=== PATIENT | female | born 1980 | race Caucasian/White ===

== ENCOUNTER 2016-08-24 14:29 | Emergency (ER) | payer MEDICAID ==
[~2016-08-24] VITALS: Ht 157.5 cm; Wt 93.0 kg
[~2016-08-24 14:29] MED LIST: ALBU5SOL6
[2016-08-24 14:38] VITALS: BP 143/92
[2016-08-24] MEDS ORDERED: PREDNISONE 20MG TABLET PO ONE (17:00)
[2016-08-24] MEDS ORDERED: IPRATROPIUM/ALBUTEROL 0.5-3(2.5)MG/3ML NEB HHN ONE ×3 (17:00→18:00)
== END 2016-08-24 18:14 | disposition home or self-care (01) ==
LOC: ER 16:04
DX: J45.901 Unspecified asthma with (acute) exacerbation (principal); R51 Headache; Z87.440 Personal history of urinary (tract) infections; Z90.49 Acquired absence of other specified parts of digestive tract
CPT/HCPCS: 94640; 99284; J7512; J7620

== ENCOUNTER 2019-01-18 02:10 | Emergency (ER) | payer MEDICAID ==
[~2019-01-18] VITALS: Ht 157.5 cm; Wt 117.0 kg
[2019-01-18] MEDS ORDERED: DIPHENHYDRAMINE 50MG CAPSULE PO ONE (03:15)
[2019-01-18] MEDS ORDERED: KETOROLAC 60MG/2ML VIAL IM ONE (03:15)
[2019-01-18] MEDS ORDERED: PREDNISONE 20MG TABLET PO ONE (03:15)
[2019-01-18] MEDS ORDERED: PROCHLORPERAZINE MALEATE 10MG TABLET PO ONE (03:15)
[2019-01-18 04:32] VITALS: BP 115/61
== END 2019-01-18 04:48 | disposition home or self-care (01) ==
LOC: ER 02:10
DX: G44.209 Tension-type headache, unspecified, not intractable (principal); J45.909 Unspecified asthma, uncomplicated; Z90.49 Acquired absence of other specified parts of digestive tract
CPT/HCPCS: 96372; 99284; J1885; J7512; Q0163; Q0164

== ENCOUNTER 2019-01-19 21:55 | Emergency (ER) | payer MEDICAID ==
[~2019-01-19] VITALS: Ht 157.5 cm; Wt 114.0 kg
[2019-01-19] MEDS ORDERED: SODIUM CHLORIDE 0.9% 1,000 ML IV ONE (23:07)
[2019-01-19] MEDS ORDERED: DIPHENHYDRAMINE 50MG/ML VIAL IV ONE (23:15)
[2019-01-19] MEDS ORDERED: METOCLOPRAMIDE HCL 10MG/2ML VIAL IV ONE (23:15)
[2019-01-19 23:56] LABS: BASOPHILS % 0.9 % (0.0-2.0); EOSINOPHILS % 1.2 % (0.0-5.0); HEMOGLOBIN. 13.6 g/dL (12.0-16.0); MEAN CORPUSCULAR VOLUME 88.2 fL (81.0-99.0); MEAN PLATELET VOLUME 9.5 fl (7.4-10.4); NEUTROPHILS % 64.9 % (40.0-76.0); PLATELET 260 x1000/uL (130-400); RED BLOOD CELL COUNT 4.54 mill/uL (4.2-5.4); RED CELL DISTRIBUTION WIDTH 12.9 % (11.6-14.6)
[2019-01-20 00:02] LABS: CHLORIDE 109 mEq/L (98-107)
[2019-01-20 00:34] LABS: HCG SCREEN NEGATIVE
[2019-01-20 00:56] LABS: CLARITY URINE TURBID (CLEAR); COLOR URINE YELLOW (YELLOW); KETONES URINE NEGATIVE (NEGATIVE); LEUKOCYTE ESTERASE URINE NEGATIVE (NEGATIVE); NITRITE URINE NEGATIVE (NEGATIVE); OCCULT BLOOD URINE NEGATIVE (NEGATIVE); PROTEIN URINE NEGATIVE (NEGATIVE)
[2019-01-20 01:13] VITALS: BP 117/76
== END 2019-01-20 01:56 | disposition home or self-care (01) ==
LOC: ER 21:55
DX: R51 Headache (principal); J45.909 Unspecified asthma, uncomplicated; H53.149 Visual discomfort, unspecified; H53.8 Other visual disturbances; R11.0 Nausea; R53.1 Weakness; Z90.49 Acquired absence of other specified parts of digestive tract
CPT/HCPCS: 36415; 70450; 80053; 81003; 84703; 85025; 85610; 96374; 96375; 99284; J1200; J2765; J7030; Z7610

== ENCOUNTER 2019-11-08 03:29 | Emergency (ER) | payer MEDICAID ==
[~2019-11-08] VITALS: Ht 157.5 cm; Wt 118.5 kg
[2019-11-08] MEDS ORDERED: ONDANSETRON HCL 4MG/2ML INJ IV STA (06:39)
[2019-11-08] MEDS ORDERED: MORPHINE SULFATE 4 MG/ML CPJ (NOT FOR IM USE) IV STA (06:39)
[2019-11-08] MEDS ORDERED: ASPIRIN 81MG TABLET PO ONE (06:45)
[2019-11-08] MEDS ORDERED: SODIUM CHLORIDE 0.9% 1,000 ML IV ONE (06:45)
[2019-11-08] MEDS ORDERED: NITROGLYCERIN OINT 1GM/INCH UDPKT TD ONE (06:45)
[2019-11-08 07:06] LABS: BASOPHILS % 1.1 % (0.0-2.0); EOSINOPHILS % 3.5 % (0.0-5.0); HEMATOCRIT. 43.8 % (36.0-48.0); HEMOGLOBIN. 14.8 g/dL (12.0-16.0); LYMPHOCYTES % 21.9 % (20.0-50.0); MEAN CORPUSCULAR HEMOGLOBIN 29.8 pg (28.0-32.0); MEAN CORPUSCULAR VOLUME 88.2 fL (81.0-99.0); MEAN PLATELET VOLUME 9.4 fl (7.4-10.4); MONOCYTES % 5.7 % (2.0-8.0); NEUTROPHILS % 67.8 % (40.0-76.0); PLATELET 279 x1000/uL (130-400); RED BLOOD CELL COUNT 4.97 mill/uL (4.2-5.4); RED CELL DISTRIBUTION WIDTH 12.7 % (11.6-14.6)
[2019-11-08 07:08] LABS: CHLORIDE 108 mEq/L (98-107)
[2019-11-08 07:14] LABS: ETHANOL BLOOD < 10 mg/dL
[2019-11-08 07:15] LABS: *AMPHETAMINES SCREEN URINE NEGATIVE (NEGATIVE); *COCAINE SCREEN URINE NEGATIVE (NEGATIVE); CANNABINOID URINE SCREEN NEGATIVE (NEGATIVE); METHADONE URINE SCREEN NEGATIVE (NEGATIVE); OPIATES URINE SCREEN NEGATIVE (NEGATIVE); PHENCYCLIDINE URINE SCREEN NEGATIVE (NEGATIVE)
[2019-11-08 07:16] LABS: *BARBITURATES SCREEN URINE NEGATIVE (NEGATIVE); *BENZODIAZEPINES SCREEN URINE NEGATIVE (NEGATIVE)
[2019-11-08 07:47] LABS: HCG SCREEN NEGATIVE
[2019-11-08 09:23] VITALS: BP 121/79
== END 2019-11-08 09:30 | disposition home or self-care (01) ==
LOC: ER 03:29
DX: J45.901 Unspecified asthma with (acute) exacerbation (principal); R42 Dizziness and giddiness; Z90.49 Acquired absence of other specified parts of digestive tract
CPT/HCPCS: 36415; 71045; 80053; 80305; 80320; 83690; 83880; 84484; 84703; 85025; 93005; 96374; 96375; 99285; J2270; J2405; J7030; Z7610; G0480

== ENCOUNTER 2020-09-05 20:30 | Emergency (ER) | payer MEDICAID ==
[~2020-09-05] VITALS: Ht 157.5 cm; Wt 114.0 kg
[2020-09-06] MEDS ORDERED: ONDANSETRON HCL 4MG/2ML INJ IM ONE
[2020-09-06] MEDS ORDERED: KETOROLAC 60MG/2ML VIAL IM ONE
[2020-09-06] MEDS ORDERED: ACETAMINOPHEN 325MG TABLET PO ONE
[2020-09-06] MEDS ORDERED: SODIUM CHLORIDE 0.9% 1,000 ML IV ONE (01:30)
[2020-09-06] MEDS ORDERED: MAGNESIUM 1 G PREMIX 100 ML IV ONE (01:30)
[2020-09-06] MEDS ORDERED: METOCLOPRAMIDE HCL 10MG/2ML VIAL IV ONE (01:30)
[2020-09-06 04:30] VITALS: BP 107/67
== END 2020-09-06 04:35 | disposition home or self-care (01) ==
LOC: ER 20:30
DX: G43.909 Migraine, unspecified, not intractable, without status migrainosus (principal); J45.909 Unspecified asthma, uncomplicated; Z90.49 Acquired absence of other specified parts of digestive tract
CPT/HCPCS: 96365; 96372; 96375; 99284; J1885; J2405; J2765; J3475; J7030

== ENCOUNTER 2024-12-07 17:45 | Emergency (ER) | payer MEDICAID ==
[~2024-12-07] VITALS: Ht 157.5 cm; Wt 104.7 kg
[2024-12-07 18:09] VITALS: TEMP 36.8; O2SAT 100
[2024-12-07] MEDS: ALBUTEROL (0.083%) 2.5MG/3ML NEB HHN SCH (18:30)
[2024-12-07] MEDS: METHYLPREDNISOLONE SOD SUCC 125MG/2ML (ACT-O-VIAL) IV ONE (19:47)
[2024-12-07 20:09] LABS: BASOPHILS % 0.8 % (0.0-2.0); EOSINOPHILS % 5.3 % (0.0-5.0); HEMATOCRIT. 39.0 % (36.0-48.0); HEMOGLOBIN. 13.3 g/dL (12.0-16.0); LYMPHOCYTES % 15.7 % (20.0-50.0); MEAN PLATELET VOLUME 9.3 fl (7.4-10.4); MONOCYTES % 6.3 % (2.0-8.0); NEUTROPHILS % 71.9 % (40.0-76.0); PLATELET 248 x1000/uL (130-400); RED BLOOD CELL COUNT 4.48 mill/uL (4.2-5.4); RED CELL DISTRIBUTION WIDTH 13.8 % (11.6-14.6)
[2024-12-07 20:28] LABS: CREATININE 0.8 mg/dL (0.6-1.0)
[2024-12-07 20:29] LABS: UREA NITROGEN BLOOD 12 mg/dL (9-23)
[2024-12-07 20:30] LABS: ASPARTATE AMINOTRANSFERASE 25 IU/L (<34)
[2024-12-07 20:31] LABS: BILIRUBIN DIRECT 0.1 mg/dL (<=3.0); BILIRUBIN TOTAL 0.3 mg/dL (0.1-1.0); PROTEIN TOTAL 6.6 g/dL (6.0-8.3)
[2024-12-07 20:34] LABS: TROPONIN I HIGH SENSITIVITY < 4 ng/L (3.0-34)
[2024-12-07] MEDS ORDERED: IPRA3AMP9 NEB (20:54)
[2024-12-07] MEDS ORDERED: ALBU18HF2 IH (20:54)
[2024-12-07] MEDS ORDERED: AZIT250T12 MT (20:54)
[2024-12-07] MEDS ORDERED: P50 MT (20:54)
[2024-12-07] MEDS: AZITHROMYCIN 500 MG TABLET PO ONE (21:13)
[2024-12-07 21:16] VITALS: BP 111/71; PULSE 88; RESP 15; O2SAT 96
== END 2024-12-07 21:23 | disposition home or self-care (01) ==
LOC: ER 17:51 → CMPBEDREQ 12-08 07:46
DX: J45.901 Unspecified asthma with (acute) exacerbation (principal); J20.9 Acute bronchitis, unspecified; Z90.49 Acquired absence of other specified parts of digestive tract; Z79.899 Other long term (current) drug therapy
CPT/HCPCS: 99285; 96374; 71045; 80076; 80048; 83880; 85025; 84484; 36415; 93005; J2919